=== PATIENT | female | born 1950 | race Caucasian/White ===

== ENCOUNTER 2021-06-30 06:04 | Day surgery (SDC) | payer OTHER, MEDICARE ==
[2021-06-24 14:00] VITALS: BMI 21.2
[2021-06-30] MEDS ORDERED: TETRACAINE 0.5% OPHTH SOLN 2 ML BOTTLE ONE (07:12)
[2021-06-30] MEDS ORDERED: POVIDONE-IODINE 5% OPHTHALMIC PREP 30 ML SOLUTION ONE (07:12)
[2021-06-30] MEDS ORDERED: ERYTHROMYCIN 0.5% OPHTHALMIC OINTMENT 3.5 GM TUBE ONE (07:12)
[2021-06-30] MEDS ORDERED: LIDOCAINE 1%/EPI 1:100000 (20 ML MULTI DOSE VIAL) ONE (07:13)
[2021-06-30] MEDS ORDERED: BUPIVACAINE HCL 50 ML ONE (07:13)
[2021-06-30] MEDS ORDERED: MIDAZOLAM HCL 2 MG/2 ML SINGLE DOSE VIAL ONE (07:30)
[2021-06-30] MEDS ORDERED: PROPOFOL 20 ML ONE ×4 (07:31→08:53)
[2021-06-30] MEDS ORDERED: ONDANSETRON 4 MG/2 ML VIAL ONE (07:50)
[2021-06-30] MEDS ORDERED: DEXAMETHASONE SOD PHOSPHATE 4 MG/1 ML VIAL ONE (07:50)
[2021-06-30] MEDS ORDERED: ceFAZolin SODIUM 1 GM VIAL ONE ×2 (07:50→08:07)
[2021-06-30] MEDS ORDERED: ONDANSETRON 4 MG/2 ML VIAL IVPUSH PRN (09:04)
[2021-06-30] MEDS ORDERED: oxyCODONE HCL 5 MG TABLET PO PRN (09:04)
[2021-06-30 09:25] VITALS: TEMP 97.5
[2021-06-30 10:31] VITALS: BP 118/80; PULSE 69
== END 2021-06-30 10:45 | disposition home or self-care (01) ==
LOC: FASU 06:04
PROVIDERS: ATTEND Ophthalmology
PROC: 08SN0ZZ Reposition Right Upper Eyelid, Open Approach (ICD-10-PCS; 2021-06-30)
PROC: 08SP0ZZ Reposition Left Upper Eyelid, Open Approach (ICD-10-PCS; principal; 2021-06-30 08:05)
DX: H02.423 Myogenic ptosis of bilateral eyelids (principal)
CPT/HCPCS: 94760